=== PATIENT | male | born 1975 | race Caucasian/White ===

== ENCOUNTER 2017-09-25 03:44 | Emergency (ER) | payer OTHER ==
[~2017-09-25] VITALS: Ht 172.7 cm; Wt 81.6 kg
[2017-09-25] MEDS ORDERED: DM/P295L17 (03:57)
--- NOTE | 2017-09-25 04:45 | NUR ---
MERRY OSBORNE AT BEDSIDE FOR MSE.
--- NOTE | 2017-09-25 05:08 | NUR ---
Patient discharged to home in stable conditon. Written and verbal after care instructions given. Patient verbalizes understanding of instructions. Pt ambulated from ER w/ steady gait. No distress nopted. Pt took all personal belongings.
[2017-09-25 05:10] VITALS: BP 124/76
== END 2017-09-25 05:11 | disposition home or self-care (01) ==
LOC: ER 03:51
DX: H66.001 Acute suppurative otitis media without spontaneous rupture of ear drum, right ear (principal); Z79.899 Other long term (current) drug therapy
CPT/HCPCS: A4663